=== PATIENT | female | born 1990 ===

== ENCOUNTER 2020-10-04 15:30 | Outpatient (RCR) | payer BC, SELFPAY ==
--- NOTE | 2020-07-26 09:34 | PTOPEVAL ---
INITIAL PHYSICAL THERAPY EVALUATION and PLAN OF CARE Thank you for referring Marissa Huizar to [facility].? Marissa is scheduled to be seen for physical therapy? 1x/week for 4 weeks. Please review, sign, date and return this plan of care LAST. I agree with and certify that the following plan of care is medically necessary. Referring Physician Date Admitting Provider: Attending Provider: Alisa Salinas MD Referring Provider: *PT Outpatient Evaluation Start: 07/26/20 08:16 Freq: Status: Active Protocol: Document 07/26/20 08:15 FEDERICO (Rec: 07/26/20 09:30 FEDERICO [id number]) Therapy Assessment Status Assessment Status Assessment Status Evaluation Outpatient Past Medical History Past Medical History No Past Medical/Surgical History Patient/Family Denies Significant Past Medical/ Surgical History Evaluation Information Problem Diagnosis chronic pelvic pain in female Onset ~ 3 years Subjective Information Began noticing - ~ 3 years ago Query Text:As Reported By Patient/ difficulty with tampon Family insertion and then with intercourse with . They have been together x 10 yrs - no difficulty with intercourse in college - but now discomfort with insertion and penetration. Will have some burning sensation x several hours afterwards at times. No change in lifestyle or habits other than some weight loss. Diagnostic Tests Other Tests For This Problem Yes: ultrasound - everything ok Prior Level of Function Activity Level (Last 3 Months) Occupation financial internship Hand Dominance Right Medications Home Meds (Include: OTC, RX, Vitamins, Buspar for anxiety, prevala - Herbals, Dose, Route,and Frequency) control Query Text:Home Med Entries Will No Longer Recall From Past Visits. Home Meds Must Be Re-entered With Each Visit. Comments Additional Prior Level of Function recreation - running, crossfit Comments , board games Pain Assessment Timing of Pain Assessment Timing of Pain Assessment Assessment Pain Scale Pain Scale Used Numeric (1 - 10) Self Report Pain Assessment Perineum Reported Pain Level 0 Pain Description Burning,Sharp Lowest Pain Intensity 0 Greatest Pain Intensity 7 Pain Score Pain Score 0: Self Report
--- NOTE | 2020-08-09 07:58 | PCPTNOTE ---
Patient called & cancelled scheduled appointment this date due to unknown reason - message left on answering machine.
--- NOTE | 2020-08-23 16:43 | PTOPEVAL ---
PHYSICAL THERAPY RE-EVALUATION and UPDATED PLAN OF CARE Thank you for referring Marissa Huizar to [facility].? Marissa is scheduled to be seen for physical therapy? once every 2 weeks for 6 weeks. Please review, sign, date and return this plan of care LAST. She has made gains towards goals set - but has not fully reached pain goals. I agree with and certify that the following plan of care is medically necessary. Referring Physician Date Admitting Provider: Attending Provider: Alisa Salinas MD Referring Provider: *PT Outpatient Evaluation Start: 07/26/20 08:16 Freq: Status: Active Protocol: Document 08/23/20 15:43 FEDERICO (Rec: 08/23/20 16:41 FEDERICO [id number]) Therapy Assessment Status Assessment Status Assessment Status Re-evaluation Outpatient Past Medical History Past Medical History No Past Medical/Surgical History Patient/Family Denies Significant Past Medical/ Surgical History Evaluation Information Problem Subjective Information Marissa reports increase in Query Text:As Reported By Patient/ awareness of L side with Family posturing, lifting, sitting, etc. 50% improvement - will still have discomfort with insertion as well as with penetration - but does better with soft tissue mobilization prior to intercourse. Discomfort afterwards doesn't last as long either - now ~ 1 hour whereas before it would be 2-3 hours. is doing well with the stretching at home prior to intercourse with her direction/verbal feedback. Pain Assessment Timing of Pain Assessment Timing of Pain Assessment Assessment Pain Scale Pain Scale Used Numeric (1 - 10) Self Report Pain Assessment Perineum Reported Pain Level 0 Lowest Pain Intensity 0 Greatest Pain Intensity 5 Pain Score Pain Score 0: Self Report Pelvic Health Therapy Pelvic Health Manual Therapy Permission Received for External/ Yes Internal Perineal Exam Location sacrum, levator ani Area of Focus levator ani tightness - on L side only today, sacral dysfunction - mild tenderness with P-A mob R sacral base. Patient Position(s) Supine Treatment Began externally - pelvis/ sacrum l
--- NOTE | 2020-09-25 11:53 | PCPTNOTE ---
Patient called & cancelled scheduled appointment this date due to inability to make today's appointment. Will keep next scheduled appointment.
--- NOTE | 2020-10-04 16:36 | PTOPEVAL ---
PHYSICAL THERAPY DISCHARGE SUMMARY Thank you for referring Marissa Huizar to [facility].? Marissa has been seen x 6 visits and is ready for discharge. Progress towards goals was made and she is able to either perform or direct her in soft tissue stretching. I agree with Marissa's discharge from PT. Referring Physician Date Admitting Provider: Attending Provider: Alisa Salinas MD Referring Provider: *PT Outpatient Evaluation Start: 07/26/20 08:16 Freq: Status: Active Protocol: Document 10/04/20 15:40 FEDERICO (Rec: 10/04/20 16:35 FEDERICO [email or web address]) Therapy Assessment Status Assessment Status Assessment Status Discharge Outpatient Past Medical History Past Medical History No Past Medical/Surgical History Patient/Family Denies Significant Past Medical/ Surgical History Evaluation Information Problem Subjective Information Marissa reports that she has Query Text:As Reported By Patient/ been busy lately. But when Family she is able to internal stretching - things go pretty well. Pain Assessment Timing of Pain Assessment Timing of Pain Assessment Assessment Pain Scale Pain Scale Used Numeric (1 - 10) Self Report Pain Assessment Perineum Reported Pain Level 0 Lowest Pain Intensity 0 Greatest Pain Intensity 6 Additional Pain Comments insertional pain 2/10, penetration 5-6/10 Pain Score Pain Score 0: Self Report Palpation Assessment Palpation Palpation Pelvis level in standing - equal SIJ mobility with trunk AROM Sacral P-A mobilization - mild discomfort at GRIS - bilat. Lower abdominal region - mild R sided tissue tension Perineal region- mild tenderness at introitus but more tenderness and tissue tension with levator ani that is close to introitus. Marked decrease in tissue tension with middle and posterior fibers of levator ani on the L , R side remains decrease in tissue tension and non painful . PT Clinical Summary Clinical Summary Protocol: PTEVCODE PT Clinical Summary Vulvar Pain Functional Questionnaire - 7 pts
== END 2020-10-05 07:29 | disposition home or self-care (01) ==
LOC: ANHPT 15:30
PROVIDERS: Visit Provider Obstetrics & Gynecology
DX: R10.2 Pelvic and perineal pain (principal)
CPT/HCPCS: 97110; 97140; 97161

== ENCOUNTER 2023-06-16 09:00 | Outpatient (NON) | payer OTHER, SELFPAY | END 2023-06-16 09:01 | disposition home or self-care (01) | LOC: ANHLAB 06-17 12:42 | PROVIDERS: Visit Provider Nurse Practitioner | DX: R22.9 Localized swelling, mass and lump, unspecified (principal) | CPT/HCPCS: 88304 ==

== ENCOUNTER 2024-04-10 00:45 | Inpatient (IN) | payer BC, SELFPAY ==
[2024-04-10] VITALS (175 sets, daily range): BP systolic 106–161; BP diastolic 49–103; PULSE 57–124; TEMP 36.6–37.4; O2SAT 94–100; BMI 32.4
[2024-04-10 01:28] LABS: Basophils Percent Auto 0.4 % (0.2-1.2); Eosinophils Absolute Auto 0.1 K/mm3 (0-0.3); Eosinophils Percent Auto 1.3 % (0-4.4); Hemoglobin 11.3 g/dL (12.0-15.0); Immature Granulocyte Percent A 1.2 % (0-0.5); Lymphocytes Absolute Auto 1.78 K/mm3 (0.9-3.2); Lymphocytes Percent Auto 21.1 % (18.3-44.2); Mean Corpuscular HGB Conc 34.2 g/dl (32-36); Mean Corpuscular Hemoglobin 31.7 pg (26-34); Mean Corpuscular Volume 92.4 fl (80-100); Mean Platelet Volume 12.9 fl (7.4-10.4); Monocytes Absolute Auto 0.7 K/mm3 (0.1-0.6); Monocytes Percent Auto 7.8 % (2.6-8.5); Neutrophils Absolute Auto 5.7 K/mm3 (1.3-6.7); Neutrophils Percent Auto 68.2 % (45.5-73.1); Platelet Count Result 120 k/mm3 (150-375); Red Blood Count 3.57 M/mm3 (4.2-5.4); Red Cell Distribution Width 12.7 % (11.5-14.5); White Blood Count 8.4 K/mm3 (4.5-10.0)
[2024-04-10] MEDS: DINOPROSTONE 10 MG VAG INSERT VAGINAL (01:34)
--- NOTE | 2024-04-10 01:36 | LDADM ---
This patient, Marissa Huizar, was admitted to Labor/Delivery/Recovery 105 on 04/10/24 at 00:45. Plans for labor, pain management and were discussed with patient. Patient/family oriented to hospital policies and general routines including ID bracelet, bed and alarms, visiting hours, pain management, procedures, bathroom and other care routines, personal items, smoking policy, room service/diet and guest tray routines, infant security routines, and visiting hours. Patient/Family are encouraged to report perceived risks to care and to ask questions if they do not understand what they are told or what they should do. See OBIX for further documentation.
[2024-04-10 02:53] LABS: HIV 1/2 Ab P24 Ag Result Negative (Negative)
--- NOTE | 2024-04-10 10:53 | PM.IMHP ---
H&P: HPI History of Present Illness Date/Time: 04/10/24 09:53 Chief Complaint: induction of labor Narrative: Marissa is a 34yo @ 40.4wks who presents for IOL. She reports good movement. Irregular contractions. No vaginal bleeding or leakage of fluid. She has had regular care and her is uncomplicated. Review of Systems Constitutional: Constitutional: Denies chills, Denies fever(s) and Denies headache(s) Eyes: Eyes: Denies change in vision ENT: Denies headache(s) Cardiovascular: Cardiovascular: Denies chest pain and Denies dyspnea Respiratory: Respiratory: Denies dyspnea Genitourinary: Genitourinary: Denies abnormal vaginal bleeding and Denies vaginal discharge Neurologic: Denies headache(s) Psychiatric: Psychiatric: Denies anxiety and Denies depression [facility] Past Medical History Medical History Suppression of menses Surgical History Surgical History Hx of LASIK [place] teeth removed Family History Family History Mother Dense breast tissue Other Congestive heart failure Diabetes mellitus Parkinsons disease Scoliosis deformity of spine Social History Social History Smoking status: Never smoker Second hand tobacco smoke exposure: No Alcohol intake: current Alcohol use details: socially Substance use: never Substance use type: does not use Do You Feel Safe in your Home?: Yes Lack of Transportation: No Lack of Food: Never True Current Housing: I Have Housing Concerned About Future Housing: No Difficulty Paying Gas/Electric Bills: No Difficulty Paying for Meds: No Currently Unemployed: No Education: Master's Degree or Higher Difficulty w/ Childcare or Family Care: No Living arrangements: with family Occupation/Education: occupation Gender identity (if verbalized by the patient): Female Sexual Orientation (if Verbalized by the Patient): Straight or Heterosexual Spiritual care concerns: No Meds Home Medications and Allergies Home Medications Medication Instructions Recorded Confirmed Type vits no.126-ferrous fum 1 tablet PO DAILY 08/12/23 04/06/24 History 28 mg iron-folic acid 800 mcg tablet (Classic ) Allergies Allergy/AdvReac Type Severity Reaction Status Date / Time No Known Allergies Allergy Verified 04/06/24 08:16 Vital Signs Vital Signs - 24 hr 04/10/24 01:12 04/10/24 01:15 04/10/24 01:45 Temperature Pulse Rate 124 H 95 78 Blood Pressure 153/96 H 132/92 H 130/84 Oxygen Delivery 04/10/24 02:00 04/10/24 02:15 04/10/24 02:30 Temperature Pulse Rate 78 70 67 Blood Pressure 127/77 123/74 125/80 Oxygen Delivery 04/10/24 02:45 04/10/24 03:00 04/10/24 03:15 Temperature Pulse Rate 62 66 62 Blood Pressure 126/73 127/84 136/74 Oxygen Delivery 04/10/24 03:30 04/10/24 03:45 04/10/24 04:00 Temperature Pulse Rate 65 72 72 Blood Pressure 127/81 122/76 121/68 Oxygen Delivery 04/10/24 04:15 04/10/24 04:30 04/10/24 04:45 Temperature Pulse Rate 68 66 94 Blood Pressure 113/60 112/68 128/79 Oxygen Delivery 04/10/24 05:00 04/10/24 05:15 04/10/24 05:30 Temperature 98.2 F Pulse Rate 69 61 66 Blood Pressure 135/87 133/79 125/72 Oxygen Delivery 04/10/24 05:45 04/10/24 06:00 04/10/24 06:15 Temperature Pulse Rate 64 74 59 L Blood Pressure 132/72 132/77 123/68 Oxygen Delivery 04/10/24 01:00 04/10/24 06:30 04/10/24 06:45 Temperature 97.8 F Pulse Rate 67 96 Blood Pressure 136/66 136/81 Oxygen Delivery 04/10/24 07:00 04/10/24 07:24 04/10/24 06:58 Temperature 98.3 F Pulse Rate 89 Blood Pressure 122/64 Oxygen Delivery Room Air Exam Const: General: cooperative, healthy appeari
[2024-04-10] MEDS: OXYTOCIN 30 UNITS/NS 500 ML 30 UNITS/500 ML BAG IV CONT (11:29)
[2024-04-10] MEDS: LACTATED RINGERS 1,000 ML 125 ML IV CONT ×3 (11:29→19:40)
--- NOTE | 2024-04-10 13:11 | WPDANESEPP ---
Anes - Eval Pre Procedure Procedure: labor epidural Date/Time: 04/10/24 13:11 Surgeon: Brad Preop Diagnosis: Pain during labor Pre Op Diagnosis: IOL Patient Data Age: 34 Gender: F Height: 1.6 m Weight: 83 kg Last Vital Signs Temp 36.8 C 04/10/24 13:02 Pulse 80 04/10/24 12:45 BP 133/84 04/10/24 12:45 O2 Del Method Room Air 04/10/24 06:58 Allergies Allergy/AdvReac Type Severity Reaction Status Date / Time No Known Allergies Allergy Verified 04/06/24 08:16 Home Medications Medication Instructions Recorded Confirmed Type vits no.126-ferrous fum 1 tablet PO DAILY 08/12/23 04/06/24 History 28 mg iron-folic acid 800 mcg tablet (Classic ) Laboratory Tests 04/10/24 01:21 WBC 8.4 K/mm3 (4.5-10.0) RBC 3.57 L M/mm3 (4.2-5.4) Hgb 11.3 L g/dL (12.0-15.0) Hct 33.0 L % (37.0-47.0) MCV 92.4 fl (80-100) MCH 31.7 pg (26-34) MCHC 34.2 g/dl (32-36) RDW 12.7 % (11.5-14.5) Plt Count 120 L k/mm3 (150-375) MPV 12.9 H fl (7.4-10.4) Immature Gran % (Auto) 1.2 H % (0-0.5) Neut % (Auto) 68.2 % (45.5-73.1) Lymph % (Auto) 21.1 % (18.3-44.2) [place] % (Auto) 7.8 % (2.6-8.5) Eos % (Auto) 1.3 % (0-4.4) Baso % (Auto) 0.4 % (0.2-1.2) Lymph # (Auto) 1.78 K/mm3 (0.9-3.2) [place] # (Auto) 0.7 H K/mm3 (0.1-0.6) Eos # (Auto) 0.1 K/mm3 (0-0.3) Baso # (Auto) 0.0 K/mm3 (0.0-0.1) Abs Immat Gran (auto) 0.10 H K/mm3 (0.00-0.031) Absolute Neuts (auto) 5.7 K/mm3 (1.3-6.7) Absolute Nucleated RBC 0.000 K/mm3 (0.0-0.012) Nucleated RBC % 0.0 % (0.0-0.2) RPR Pending HIV 1&2 Ab/P24 Ag 4thGn Negative (Negative) Blood Type O Positive Antibody Screen Negative Patient hx anesthesia problems: none Family hx anesthesia problems: none Results Review: All pre-operative results and documents have been reviewed as part of the pre-operative evaluation. [facility] Past Medical History Medical History Suppression of menses Surgical History Surgical History Hx of LASIK [place] teeth removed Family History Family History Mother Dense breast tissue Other Congestive heart failure Diabetes mellitus Parkinsons disease Scoliosis deformity of spine Social History Social History Smoking status: Never smoker Second hand tobacco smoke exposure: No Alcohol intake: current Alcohol use details: socially Substance use: never Substance use type: does not use Do You Feel Safe in your Home?: Yes Lack of Transportation: No Lack of Food: Never True Current Housing: I Have Housing Concerned About Future Housing: No Difficulty Paying Gas/Electric Bills: No Difficulty Paying for Meds: No Currently Unemployed: No Education: Master's Degree or Higher Difficulty w/ Childcare or Family Care: No Living arrangements: with family Occupation/Education: occupation Gender identity (if verbalized by the patient): Female Sexual Orientation (if Verbalized by the Patient): Straight or Heterosexual Spiritual care concerns: No Exam Day of Procedure 04/10/24 13:11 Patient weight: normal Heart: regular rate and rhythm Lungs: normal air movement Airway: Mallampati scale class II Neurological: alert and oriented
[2024-04-10 14:06] LABS: Rapid Plasma Reagin Non-Reactive (NonReactive)
[2024-04-10] MEDS: ONDANSETRON INJ 4 MG/2 ML VIAL IV PUSH (21:46)
[2024-04-10] MEDS: SODIUM CHLORIDE 0.9% IV 300 ML 600 ML I-UTERINE (23:43)
[2024-04-11] VITALS (90 sets, daily range): BP systolic 95–157; BP diastolic 38–129; PULSE 58–174; RESP 14–22; TEMP 36.9–37.8; O2SAT 96–100
[2024-04-11] MEDS: diphenhydrAMINE HCl INJ 50 MG/ML VIAL 25 MG IV PUSH (00:18)
--- NOTE | 2024-04-11 02:56 | WPDHPUPDATE1 ---
History and Physical Update Update Date/Time: 04/11/24 02:56 History and Physical has been reviewed, including an updated exam of the patient. There are NO changes in the patient's condition. Risks, benefits, and alternatives have been discussed and questions answered. Patient agrees to proceed with primary due to arrest of active phase and recurrent heart decelerations.
[2024-04-11] MEDS: ONDANSETRON INJ 4 MG/2 ML VIAL IV PUSH ×2 (03:00→03:36)
[2024-04-11] MEDS: ACETAMINOPHEN 500 MG TABLET 1000 MG PO (03:00)
[2024-04-11] MEDS: FAMOTIDINE 20 MG/2 ML VIAL IV PUSH (03:03)
[2024-04-11] MEDS: ceFAZolin 2 GM/D5W 50 ML 2 GM/50 ML BAG IVPB (03:10)
[2024-04-11] MEDS: AZITHROMYCIN 500 MG/NS 250 ML 500 MG/250 ML BAG 250 MG IVPB (03:20)
[2024-04-11] MEDS: KETOROLAC 15 MG/ML VIAL (*BKC) IV PUSH ×4 (03:36→22:24)
[2024-04-11] MEDS: LACTATED RINGERS 1,000 ML 125 ML IV CONT (03:40)
--- NOTE | 2024-04-11 04:16 | W.PM.OBCSD ---
OB - Delivery Note Procedure Delivery date: 04/11/24 Pre-op diagnosis: Arrest of Dilation, Elective Induction of Labor (/late term IOL) and Decelerations Post-op Diagnosis: Same Induction method: Per Cervidil Protocol Delivery augmentation: Rupture of Membranes and Pitocin Delivery monitor: External FHT and Internal Uterine Prior to decision for section, ACOG/SM labor guidelines were considered and discussed with the patient and staff. Decision made to proceed with the section.: Yes Procedure Performed: Primary Primary branch: low cervical, transverse Surgeon: Alisa Salinas MD Anesthesia type: Epidural Description of Procedure/Findings: Male with nuchal x1; LOT position. Clear fluid. Normal uterus and ovaries bilaterally. Good hemostasis at end of case. Specimen: Yes (placenta) Estimated Blood Loss: 630 Pathology: Yes (placenta) Complications: No immediate complications Condition: Stable Disposition: Floor [place] Baby Date of : 04/11/24 Time of : 03:36 Weeks of gestation at delivery: 40 (.5) Infant gender: Male Weight (pounds): 6 Weight (ounces): 14 presentation: vertex position: Left Occiput Transverse Placenta delivery description: Expressed Cord Vessel Description: 3 Vessels, Nuchal Cord and Delayed Cord Clamping score one minute: 7 score five minutes: 9 Narrative: She was counseled on all risks and benefits in detail and need for . She was taken to the operating room where epidural was dosed and found to have an adequate level. She was then prepped and draped in the normal sterile fashion. She received 2g Ancef and 500mg Azithromycin a time out was performed. A Pfannenstiel incision was made in the skin and carried down to the underlying fascia. The fascia was nicked on either side of the midline and the fascial incision was extended laterally and superiorly using curved Medley scissors. The fascia was then elevated using Zac clamps and the underlying rectus muscles were dissected off the fascia, superiorly and inferiorly. The rectus muscles were then in the midline and the peritoneum was entered bluntly. Once adequate exposure was obtained, a Mobius self retractor was placed within the abdomen. A bladder flap was created. A low transverse incision was made on the lower uterine segment and clear fluid was noted. The occiput was brought to the hysterotomy and the head was easily delivered, the nuchal cord was reduced. The shoulders and body then followed without complications. The had spontaneous cry and the mouth and nose were bulb suctioned. Delayed cord clamping was performed, the cord was doubly clamped and cut and the infant was handed off to the awaiting pediatric nurse. A segment of the cord was collected for cord gases. The remaining cord blood was collected for typing. With Pitocin infusing, the placenta delivered with gentle traction on the cord without complications. The uterus was then cleared out of all clots and debris using a clean, moist lap. The hysterotomy was then repaired in a running, interlocking fashion using 0 Vicryl. A second layer imbricating suture was then made using 0 Vicryl. Two small areas were noted to be oozing in the middle section of the hysterotomy; two separate 2-0 Vicryl figure of eight stitches were placed, and the hysterotomy was found to be hemostatic and good uterine tone was noted. The bilateral adnexa were examined and found to be normal. The pelvis was cleared of all clots and fluid. The Mobius retractor was removed from the abdomen. The peritoneum, muscle, and fascia were examined and made hemostatic with Bovie cautery. The fascia was then repaired using a 0 Vicryl suture in a running fashion. The subcutaneous tissue was then irrigated and made hemostatic with Bovie cautery. The subcutaneous tissue was then reapproximated using 2-0 Vicryl. The skin was then clos
--- NOTE | 2024-04-11 06:55 | OBPPTRN ---
Patient transferred to post room #291 via stretcher. Support person present. Oriented to unit, room, information board, rooming in, admission packet and security measures. Patient verbalizes understanding.
--- NOTE | 2024-04-11 07:19 | WPDANLDPN2 ---
Anes-Prog Note L&D Date/Time: 04/11/24 07:19 Neuro status: Neuro function grossly intact. Cardiovascular status: normal Respiratory status: normal Airway patency: baseline Mental status: baseline Post-Op hydration status: normal Vital Signs: Last Vital Signs Temp 99.7 F H 04/11/24 04:17 Pulse 90 04/11/24 06:45 Resp 20 04/11/24 06:30 BP 137/75 04/11/24 06:45 Pulse Ox 98 04/11/24 06:43 O2 Del Method Room Air 04/11/24 06:30 Pain score (VAS): 1 I/O: Intake & Output 04/10/24 04/10/24 04/11/24 15:59 23:59 07:59 Intake Total 1000 633.3 1000 Output Total 630 Balance 1000 633.3 370 Post-procedural complaints: none Patient feedback: Patient satisfied with anesthetic care.
--- NOTE | 2024-04-11 07:19 | WPDANLDNPN2 ---
Anes-Prog Note L&D-Neuraxial Date/Time: 04/11/24 07:19 Neuraxial medications: epidural PF morphine Opiod-related complaints: none Patient feedback: Patient satisfied with post-operative pain management.
[2024-04-11] MEDS: DOCUSATE SODIUM 100 MG CAPSULE PO ×2 (09:39→16:22)
[2024-04-11] MEDS: MULTIVIT/MIN/PREN/FOL AC/IRON TABLET 1 TAB PO (09:39)
[2024-04-11] MEDS: SIMETHICONE 80 MG TAB.CHEW PO ×2 (09:39→16:22)
[2024-04-11] MEDS: ACETAMINOPHEN 325 MG TABLET 650 MG PO ×3 (09:39→22:25)
[2024-04-11] MEDS: DEXTROSE 5%/0.45% SOD CHL 1,000 ML 125 ML IV CONT (10:46)
--- NOTE | 2024-04-11 11:15 | PC.NURSE ---
Nipple shield provided to mother due to infant unable to maintain latch. Reviewed good handwashing, cleaning the nipple shield and the appropriate way to apply and use as a tool. Discussed with mom the nipple shield precautions, possible complications associated with the risks and benefits. Reviewed practicing with a nipple shield, then without and how to protect the milk supply and production. Mom and baby guide referred to as a resource for outpatient services, community resources and when to call a provider. Mom voiced understanding of the importance of initiating pumping if infant continues to nurse with the shield. Reported to the Primary RN.
[2024-04-12 04:10] VITALS: BP 121/70; PULSE 80; RESP 18; TEMP 36.9; O2SAT 100
[2024-04-12] MEDS: ACETAMINOPHEN 325 MG TABLET 650 MG PO ×3 (05:45→17:55)
[2024-04-12] MEDS: IBUPROFEN 600 MG TABLET PO ×3 (05:45→17:54)
[2024-04-12 05:49] LABS: Basophils Percent Auto 0.3 % (0.2-1.2); Eosinophils Absolute Auto 0.1 K/mm3 (0-0.3); Eosinophils Percent Auto 0.7 % (0-4.4); Hematocrit 25.7 % (37.0-47.0); Hemoglobin 8.7 g/dL (12.0-15.0); Immature Granulocyte Absolute 0.09 K/mm3 (0.00-0.031); Immature Granulocyte Percent A 0.6 % (0-0.5); Immature Platelet Fraction Pct 14.7 % (0.9-11.2); Lymphocytes Absolute Auto 1.52 K/mm3 (0.9-3.2); Lymphocytes Percent Auto 10.2 % (18.3-44.2); Mean Corpuscular HGB Conc 33.9 g/dl (32-36); Mean Corpuscular Hemoglobin 32.1 pg (26-34); Mean Corpuscular Volume 94.8 fl (80-100); Mean Platelet Volume 13.6 fl (7.4-10.4); Monocytes Absolute Auto 0.7 K/mm3 (0.1-0.6); Monocytes Percent Auto 4.5 % (2.6-8.5); Neutrophils Absolute Auto 12.5 K/mm3 (1.3-6.7); Neutrophils Percent Auto 83.7 % (45.5-73.1); Platelet Count Result 117 k/mm3 (150-375); Red Blood Count 2.71 M/mm3 (4.2-5.4); Red Cell Distribution Width 13.1 % (11.5-14.5); White Blood Count 14.9 K/mm3 (4.5-10.0)
--- NOTE | 2024-04-12 06:29 | PM.OBPNVD ---
OB - PN: Subj Subjective Date/time seen: 04/12/24 06:29 Narrative: POD#1 Marissa reports doing well today. 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 Her pain is controlled. She is tolerating regular diet, voiding, passing gas, and ambulating without issues. She denies any issues with her incision. She is breast feeding. OB - PN: Obj Data Labs 04/12/24 03:57 Labs: Laboratory Results - last 24 hr 04/12/24 03:57 WBC 14.9 H RBC 2.71 L Hgb 8.7 L Hct 25.7 L MCV 94.8 MCH 32.1 MCHC 33.9 RDW 13.1 Plt Count 117 L MPV 13.6 H Immature Gran % (Auto) 0.6 H Neut % (Auto) 83.7 H Lymph % (Auto) 10.2 L [place] % (Auto) 4.5 Eos % (Auto) 0.7 Baso % (Auto) 0.3 Lymph # (Auto) 1.52 [place] # (Auto) 0.7 H Eos # (Auto) 0.1 Baso # (Auto) 0.0 Abs Immat Gran (auto) 0.09 H Absolute Neuts (auto) 12.5 H Absolute Nucleated RBC 0.000 Nucleated RBC % 0.0 % Immature Plt Fraction 14.7 H OB - PN A/P Assessment and Plan (1) S/P section: Code(s): Z98.891 - History of uterine scar from previous surgery Status: Acute Plan day: 1 Plan: routine care Comments: - Venofer 500mg IV for anemia - PO pain meds - Regular diet - Ambulation and hydration encouraged - Continue putting baby to breast q2-3hr Time Spent With Patient Time: Total time spent is greater than 50% in coordination of care (as documented) at patient's floor/unit and/or counseling patient: Review of Systems Constitutional: Constitutional: Denies chills, Denies fever(s) and Denies headache(s) Eyes: Eyes: Denies change in vision ENT: Denies dizziness and Denies headache(s) Cardiovascular: Cardiovascular: Denies chest pain, Denies palpitations and Denies dyspnea Respiratory: Respiratory: Denies cough and Denies dyspnea Gastrointestinal: Gastrointestinal: Denies nausea and Denies vomiting Genitourinary: Comments: normal bleeding Neurologic: Denies dizziness and Denies headache(s) Endocrine: Endocrine: Denies palpitations Exam Const: General: cooperative, comfortable and no acute distress Orientation/consciousness: patient oriented x3 Resp: Effort & Inspection: normal respiratory effort Auscultation: clear to auscultation bilaterally Cardio: Rate: regular rate GI: Inspection: non-distended and incision (covered with clean dressing) GI Palp: Yes abdominal tenderness (appropriate) and Yes Soft to palpation Auscultation: normal bowel sounds : Other: fundus firm Skin: General skin exam: normal color Neuro: General: patient oriented x3 Extrem: General: normal to inspection Psych: Appearance: grossly normal Affect: normal affect Attitude: cooperative
[2024-04-12 07:50] VITALS: BP 120/83; PULSE 83; RESP 16; TEMP 37.1; O2SAT 99
[2024-04-12] MEDS: MULTIVIT/MIN/PREN/FOL AC/IRON TABLET 1 TAB PO (09:45)
[2024-04-12] MEDS: DOCUSATE SODIUM 100 MG CAPSULE PO ×2 (09:45→17:54)
[2024-04-12] MEDS: POLYSACCHARIDE IRON COMPLEX 150 MG CAPSULE PO ×2 (11:56→17:54)
[2024-04-12] MEDS: LIDOCAINE 5% PATCH 1 PATCH TRANSDERM (11:56)
[2024-04-12] MEDS: SIMETHICONE 80 MG TAB.CHEW PO ×3 (11:58→17:54)
--- NOTE | 2024-04-12 12:07 | PC.NURSE ---
[id number]. Introductions were made, then consulted with patient to assess needs related to . Mother led the conversation with her?plans to feed?her and the?experience so far. Mother explained infant cluster fed for a long time last night and has been really sleepy so far this morning. SHe explained she has been able to breastfeed infant so far without and pain to her nipples wtih just a little tenderness when initially latches, and her last feeding was at 0615 for 10-15 min. Encouraged understanding of the benefits of skin to skin (demonstrating unwrapping infant and placing upright on her chest), stimulating with massage touch, changing positions to encourage wakefulness, how to watch for early feeding cues, responsive feeding, feeding on demand (aiming for 8-12 times in 24 hours, about every 2-3 hours), milk production, building/maintaining a milk supply, duration of feeding, signs of adequate intake/output and how to record on the feeding sheet. Mother works well with her with encouragement and education. Reviewed positioning and ear, shoulder, hip alignment, supporting the breast to facilitate a deep latch, asymmetrical latch (off-center), leading with the chin with a big, open, wide gape and body close to mother. latched optimally to the left breast in cross cradle position. Education given to the mother of how to visualize the suckling (with good rocking jaw motion), swallows (dropping of the lower jaw) and how to listen for drinking at the breast (the ka sound). Infant was able to maintain latch without pain but was sleepy and reluctant to continuously nurse. Infant stimulated with touch, movement and talking and infant remained sleepy and reluctant. Mother encouraged to try again in the next 30min to hour to breastfeed again when was a little more awake. Reviewed comfort measures of healing with a warm, wet washcloth to rinse breast, then leave open to air-dry, good handwashing when or touching the breast/nipples to prevent infection. Mother voiced understanding of skin to skin, stimulating with massage touch, responsive feedings, hand expressed colostrum, talking to to encourage if it has been 2 -2.5 hours since the start of the last , to call if infant does not latch, or if there is discomfort with . Resources used for education were facilitated with the visual educational handouts. Inpatient resources provided with feeding sheet, name written on the communication board, and the mom/baby guide. Parents voiced understanding of information, demonstrated learning and will call if there is a request for assistance. Reported to the Primary RN.
--- NOTE | 2024-04-12 12:14 | PC.NURSE ---
[id number]. Mother requested RN check to see if she was using the correct size flange and for help setting up her Spectra 1 breast pump. Mother measured 18mm nipple size so encouraged to use a size 21 flange for her pump. Instructions given on cleaning, care, usage, that there should be no pain, pumping schedule for milk production, collection, and storage of human milk. Patient was assessed for correct placement, flange size, to pump for comfort and nipple stretching/stimulation for adequate milk production every 3 hours (8 times in 24 hours) 1-2 times at night.?Mother voiced understanding of the education shared along with mom/baby guide and the pump measurement. Reported to the Primary RN.
[2024-04-12 19:30] VITALS: BP 113/68; PULSE 80; RESP 20; TEMP 37.2; O2SAT 98
--- NOTE | 2024-04-13 07:14 | PM.OBDSVD ---
DS: Admitting Diagnosis Discharge Date 04/13/24 Admitting Diagnosis Induction of labor DS: Discharge Diagnosis Discharge Diagnosis (1) S/P section: Code(s): Z98.891 - History of uterine scar from previous surgery Status: Acute (2) Arrested active phase of labor: Code(s): O62.1 - Secondary uterine inertia Status: Acute OB - DS: Summary OB Procedures : Ultrasound OB Procedures Intrapartum: low cervical, transverse OB Procedures: : Other (Venofer 500mg IV once) Peripartum Data Delivery Method: Section Procedures: Procedures Operation Date: 04/11/24 03:00 Actual Procedure Side Surgeon p Section Bilateral Alisa Salinas MD complications: none [place] 1: Gender: Male Disposition of : home Status at Discharge Functional status at discharge: independent ambulation Overall status at discharge: patient is back to baseline Time Spent with Patient Time attestation: Total time spent providing and/or coordinating discharge services: Time spent: Less than 30 minutes Exam Const: General: cooperative, comfortable and no acute distress Orientation/consciousness: patient oriented x3 Resp: Effort & Inspection: normal respiratory effort Auscultation: clear to auscultation bilaterally Cardio: Rate: regular rate GI: Inspection: non-distended GI Palp: No abdominal tenderness and Yes Soft to palpation Auscultation: normal bowel sounds : Other: fundus firm Skin: General skin exam: normal color Neuro: General: patient oriented x3 Extrem: General: normal to inspection Psych: Appearance: grossly normal Affect: normal affect Attitude: cooperative DS: Data Data Completed and Pending Pending studies at discharge: Pending at discharge 04/11/24 04:40 Surgical [PTH] Routine Labs on day of discharge: Labs from last 24 hours 04/12/24 03:57 WBC 14.9 H RBC 2.71 L Hgb 8.7 L Hct 25.7 L MCV 94.8 MCH 32.1 MCHC 33.9 RDW 13.1 Plt Count 117 L MPV 13.6 H Immature Gran % (Auto) 0.6 H Neut % (Auto) 83.7 H Lymph % (Auto) 10.2 L [place] % (Auto) 4.5 Eos % (Auto) 0.7 Baso % (Auto) 0.3 Lymph # (Auto) 1.52 [place] # (Auto) 0.7 H Eos # (Auto) 0.1 Baso # (Auto) 0.0 Abs Immat Gran (auto) 0.09 H Absolute Neuts (auto) 12.5 H Absolute Nucleated RBC 0.000 Nucleated RBC % 0.0 % Immature Plt Fraction 14.7 H Discharge Plan Discharge Attending physician on discharge: Alisa Salinas Discharging Clinician: Alisa Salinas Anticipated Discharge Date/Time: 04/13/24 10:00 Patient Disposition: Home, Self-Care Activity: may shower and pelvic rest Diet: regular Discharge Instructions: Remove dressing on 04/17/24. No heavy lifting over 15lbs for 6 weeks. Pelvic rest (nothing in the vagina) for 6 weeks. Showers only; no baths/pools for 6 weeks. Patient Instructions: (DC) Stand Alone Forms: General Discharge Information Follow-up/Referrals: Alisa Salinas MD [Physician] - 4 Weeks Discharge Medications: New acetaminophen 325 mg Tablet 650 mg PO Q6H Qty: 60 0RF docusate sodium 100 mg Capsule 100 mg PO BID Qty: 90 0RF hydrocodone-acetaminophen 5-325 mg Tablet 1 tablet PO Q3H PRN (Reason: Breakthrough Pain Rated 4-6) Qty: 20 0RF ibuprofen 600 mg Tablet 600 mg PO Q6H Qty: 40 0RF Continued Classic 28 mg iron- 800 mcg tablet 1 tablet PO DAILY Date of admission: 04/10/24 00:45 Primary Care Provider: UNKNOWN,DOCTOR Admitting Provider: Alisa Salinas Attending physician on admission: Alisa Salinas Condition: Stable
[2024-04-13] MEDS: POLYSACCHARIDE IRON COMPLEX 150 MG CAPSULE PO ×2 (07:41→17:43)
[2024-04-13] MEDS: MULTIVIT/MIN/PREN/FOL AC/IRON TABLET 1 TAB PO (07:41)
[2024-04-13] MEDS: SIMETHICONE 80 MG TAB.CHEW PO ×3 (07:41→17:43)
[2024-04-13] MEDS: ACETAMINOPHEN 325 MG TABLET 650 MG PO ×3 (07:41→13:30)
[2024-04-13] MEDS: IBUPROFEN 600 MG TABLET PO ×3 (07:41→13:30)
[2024-04-13] MEDS: DOCUSATE SODIUM 100 MG CAPSULE PO ×2 (07:41→17:43)
[2024-04-13 08:20] VITALS: BP 134/84; PULSE 76; RESP 16; TEMP 36.6; O2SAT 99
--- NOTE | 2024-04-13 10:07 | PC.NURSE ---
[id number]. Consulted with patient to assess needs related to . Discussed with mother her successes, concerns and any questions she has. Mother explained she has a sore R nipple with some bruising. RN educated mom on going on nipple rest to protect her nipple from further damage and pumping for 15 min instead. RN also suggested using a nipple shield to protect the nipple if that she feels like that protects the breast from rubbing on the wounded area. We discussed transitioning from nipple rest back to the breast with a nipple shield if need be, and we reviewed pumping for at least 15 min every 3 hours and feeding infant 15 ml or more of EBM and/or formula. We reviewed working with the infant, supporting breast, protecting her nipples with an optimal deep latch, good positioning, and good hand washing. Encouraged understanding the benefits of skin to skin, responding to feeding cues, frequencies of feeding 8-12 times in 24 hours (approximately 2-3 hours), duration of feedings, milk production, intake/output feeding sheet and signs of adequate intake encouraging swallowing at the breast. Reviewed positioning and alignment, supporting breast, off-centered (asymmetrical latch) and leading with the chin with big, open, wide gape. Resources used to facilitate learning were used from the visual handouts. Mother voiced understanding of the education shared, to call for assistance if the infant does not latch or if there is discomfort with . Reported to the Primary RN.
[2024-04-13] MEDS: LIDOCAINE 5% PATCH 1 PATCH TRANSDERM (13:30)
[2024-04-13 19:29] VITALS: BP 137/87; PULSE 81; RESP 20; TEMP 37; O2SAT 99
[2024-04-14] MEDS: ACETAMINOPHEN 325 MG TABLET 650 MG PO (07:06)
[2024-04-14] MEDS: IBUPROFEN 600 MG TABLET PO (07:06)
[2024-04-14] MEDS: MULTIVIT/MIN/PREN/FOL AC/IRON TABLET 1 TAB PO (07:06)
[2024-04-14] MEDS: DOCUSATE SODIUM 100 MG CAPSULE PO (07:06)
[2024-04-14] MEDS: SIMETHICONE 80 MG TAB.CHEW PO (07:06)
[2024-04-14] MEDS: POLYSACCHARIDE IRON COMPLEX 150 MG CAPSULE PO (07:06)
[2024-04-14 08:40] VITALS: BP 138/85; PULSE 77; RESP 18; TEMP 36.7; O2SAT 99
[2024-04-15 09:22] VITALS: BP 130/76; PULSE 81; RESP 18; TEMP 37.1; O2SAT 100
== END 2024-04-14 10:00 | disposition home or self-care (01) | DRG 788 ==
LOC: ANHLDR 04-11 03:54 → ANHOB2 04-11 06:56
PROVIDERS: Admitting Provider Obstetrics & Gynecology; Visit Provider Obstetrics & Gynecology
PROC: 10D00Z1 Extraction of Products of Conception, Low, Open Approach (ICD-10-PCS; CPT 59514; principal; 2024-04-11 03:00)
DX: O69.81X0 Labor and delivery complicated by cord around neck, without compression, not applicable or unspecified (principal); Z37.0 Single live birth; Z3A.40 40 weeks gestation of pregnancy; O62.1 Secondary uterine inertia; O36.8330 Maternal care for abnormalities of the fetal heart rate or rhythm, third trimester, not applicable or unspecified
CPT/HCPCS: 36415; 85025; 85055; 86592; 86703; 86850; 86900; 86901; 88307; A9270; G0432; J0456; J0690; J1200; J1885; J2274; J2371; J2405; J2590; J2795; J7030; J7120